=== PATIENT | male | born 1930 | race Caucasian/White ===

== ENCOUNTER → 2016-12-18 | Outpatient (CLI) | payer MEDICARE, OTHER ==
[~2016-12-18] MED LIST: ALDACTONE25 MG PO; ASPIR 8181 MG PO; ASPIRIN LO-DOSE81 MG PO; BRILINTA90 MG PO; COREG6.25 MG PO; LASIX40 MG PO; LIPITOR40 MG PO; PRINIVIL (ZESTRI5 MG PO; PROTONIX40 MG PO; ZESTRIL2.5 MG PO
[2016-12-18 18:11] LABS: ALBUMIN 3.6 gm/dL (3.5-5.0); ALK PHOS 80 IU/L (33-138); ALT 37 IU/L (12-78); ANION GAP 13.3 (10.0-19.0); AST 25 IU/L (10-40); BLOOD UREA NITROGEN 16 mg/dL (6-24); CALCIUM 8.7 mg/dL (8.5-10.5); CHLORIDE 110 mMol/L (96-110); CO2 24 mMol/L (22-32); ESTIMATED GFR (MDRD EQUATION) > 60; POTASSIUM 4.3 mMol/L (3.7-5.1); SODIUM 143 mMol/L (135-145); TOTAL PROTEIN 6.4 g/dL (6.0-8.4)
[2016-12-18 18:12] LABS: TOTAL BILIRUBIN 1.3 mg/dL (0.0-1.5)
== END | disposition disaster alternative care site (69) ==
LOC: LNHI 17:29
PROVIDERS: Internal Medicine Cardiovascular Disease
DX: I25.10 Atherosclerotic heart disease of native coronary artery without angina pectoris (principal); I25.5 Ischemic cardiomyopathy; I35.0 Nonrheumatic aortic (valve) stenosis